=== PATIENT | male | born 1990 | race Caucasian/White ===

== ENCOUNTER 2024-08-24 22:56 | Emergency (ER) | payer BC, SELFPAY ==
[2024-08-24 23:04] VITALS: BP 132/68; PULSE 83; RESP 16; TEMP 36.7; O2SAT 98; BMI 29.5
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
[2024-08-24] MEDS: TETANUS/DIPHTH/PERTUSSIS 0.5 ML SYRINGE IM (23:09)
[2024-08-24] MEDS: LIDOCAINE 1%-EPI 1:100,000 5 ML INFILTRATI (23:10)
--- OUTSIDE RECORDS SUMMARY | 2024-08-24 23:14 | XMS_ITS | Clinical Summary ---
Author Organization [employer] [facility] Address [address] [place] [id number] Care Team Providers Care Head Of Insight Name Role Phone Pcp, No Primary Care Provider Unavailabl e Allergies Active Allergy Reactions Criticality Noted Date Comments Cats (Fur, Dander, Saliva) Respiratory Distress 04/02/2005 sneezing and sinus Medications * This document contains information received from the source organization and may not represent a complete record from that organization. omeprazole 20 mg tabletIndication s:GERD without esophagitis Take 1 Tablet (20 mg) by mouth once daily before a meal. 30 Tablet 1 07/30/2021 Active Active Problems Problem Noted Date Diagnosed Date Cellulitis and abscess 01/30/2015 Current smoker 01/30/2015 Bilateral chronic knee pain 09/10/2014 Cannabis abuse, continuous 09/09/2014 Pain medication agreement broken 07/07/2013 Overview (07/07/2013): 07/07/2013 Failed Toxasure, no further medications Cocaine and other medications present on recent test. Issue of repeat prescription 04/14/2013 Overview (07/07/2013): No further narcotics. PT has broken pain contract. Diagnosis for medication: chronic left knee pain Drug: Oxycodone 15 mg BID. Monitoring Intensity: moderate Frequency of office visits for pain medications: Q 1 month(s) MD monitoring interval / urine interval: annually Last pain contract date: 04/14/2013 Other Modalities that have been tried: PT, Percocet. Prior surgeries X3. Allergy nausea and vomiting from tylenol. BACK PAIN 08/01/2010 Resolved Problems Problem Noted Date Diagnosed Date Resolved Date Opioid abuse, daily use 09/09/201404/09 Opioid withdrawal 09/09/2014 04/28/2018 Opioid type dependence, continuous 09/09/2014 07/30/2021 Effusion of knee joint, left 04/30/2012 04/28/2018 CONTUSION, RIGHT RIB 12/22/2010 012 TOBACCO ABUSE 10/09/2010 03/02/2012 KNEE PAIN, LEFT, CHRONIC 02/25/2009 Unspecified part of closed f racture of clavicle 04/02/2005 03/02/2012 Overview (04/02/2005): Fall 2003 - left clavicular callus Immunizations Immunization Administration Dates Next Due Hepatitis B (Adult) 07/29/2017 Hepatitis B (Peds) 10/06/2002 Influenza, IIV4 (=>6mos) MDV 11/17/2018 MMR 10/06/2002 Td (Age >=7 Years) 05/09/2005,10/06/2002 Tdap 07/29/2017 Tuberculin (PPD) 10/04/2018,07/29/2017, 8,08/30/2013 Family History Medical History Relation Name Comments Good Health Father Cancer Maternal Grandfather Lung ca ncer Good Health Mother Allergies Other Relation Name Status Comments Child 1 Alive Child 2 Alive Father Maternal Grandfather Mother Other Social History Tobacco Use Types Packs/Day Years Used Date Smoking Tobacco: Former Cigarettes 1 7 0 05/28/2014 - 05/30/2021 Smokeless Tobacco: Never Tobacco Cessation:Ready to Q uit: No; Counseling Given: Yes Alcohol Use Standard Drinks/Week Comments No 0 (1 standard drink = 0.6 oz pur e alcohol) PHQ-2 Answer Date Recorded PHQ-2 TOTAL SCORE 0 07/30/2021 Social Connections Answer Date Recorded Frequency of Communication with Friends and Fami ly Not on file 07/31/2022 Financial Resource Strain Answer Date R ecorded Difficulty of Paying Living Expenses 3 07/30/2021 Difficulty of Paying Living Expenses Not on file 07/30/2021 Food Insecurity Answer Date Recorded Worried About Running Out of Food in the Last Ye ar 1 07/30/2021 Transportation Needs Answer Date Record ed Lack of Transportation (Medical) 1 07/30/2021 Housing Stability Answer Date Recorded Unable to Pay for Housing in the Last Year 1 07/30/2021 Interpersonal Safety Answer Date Record ed Are you being hit, kicked, p ushed or yelled at (see row info)? No 09/27/2023 Interpersonal Safety Abuse 12 - 18 Not on file 09/27/2023 Interpersonal Safety Ambulatory Vulnerability No t on file 09/27/2023 Sex and Gender Information Value Date Recorded Sex Assigned at Not on file Legal Sex Male 5:30 AM [employer] Gender Identity Not on file Sexual Orientation Not on file Obstetrics History Last Filed Vital Signs Vital Sign Reading Time Taken Comments Blood Pressure 135/84 09/27/2023 4:02 PM CDT Pulse 70 09/27/2023 4:02 PM CDT Temperature 36.5 C (97.7 F) 09/27/2023 4:02 PM CDT Respiratory Rate 18 09/27/2023 4:02 PM CDT Oxygen Saturation 97% 09/27/2023 4:02 PM CDT Inhaled Oxygen Concentration - - Weight 85.3 kg (188 lb) 09/27/2023 12:50 PM CDT Height 185.4 cm (6' 1) 09/27/2023 12:50 PM CDT Body Mass Index 24.8 09/27/2023 12:50 PM CDT Plan of Treatment Health Maintenance Due Date Last Done Comments Hepatitis B series for 19+ (3 of 3 - 3-dose series) 09/23/2017 07/29/2017, 10/06/2002 BMI (ht and wt on same day) for age 18+ 07/30/2022 07/30/2021, 05/13/2018, 04/28/2018, Additional history exists Depression screening for age 12+ 07/30/2022 07/30/2021, 06/24/2018, 05/02/2018, Additional history exists COVID-19 vaccine series ( season) 2023 Influenza Vaccine (#1) 2024 11/17/2018 Tetanus booster 07/30/2027 07/29/2017, 04/02/2005, 10/06/2002 HIV for age 15-65 Completed 11/10/2011 Hepatitis C screening for age 18-79 Completed 11/10/2011 Pneumococcal series for age 6-49 Aged Out No longer eligible based on patient's age to complete this topic Procedures Procedure Name Priority Date/Time Associated Diagnosis Comments ANTI HIV 1/2 STAT 11/10/2011 10:00 PM CDT ANTI HCV STAT 11/10/2011 10:00 PM CDT from Last 3 Months or Most Recently Relevant to Health Maintenance Results * ANTI HCV (11/10/2011 10:00 PM CDT) ANTI HCV Non-reacti ve [facility] Blood specimen (specimen) BLOOD SPECIMEN / Unknown 11/10/2011 10:00 PM CDT 11/10/2011 9:58 PM CDT us Rinku Ram MD SEND OUTS Final Result [facility] [place] [id number] [place] [id number] * ANTI HIV 1/2 (11/10/2011 10:00 PM CDT) ANTI HIV 1/2 Non-reacti [facility] Blood specimen (specimen) BLOOD SPECIMEN / Unknown 11/10/2011 10:00 PM CDT 11/10/2011 9:58 PM CDT us Rinku Ram MD SEND OUTS Final Result [facility] [place]IP [id number] [place] [phone] from Last 3 Months or Most Recently Relevant to Health Maintenance Additional Health Concerns Infection Onset Date Last Indicated MRSA Comment:Left Forearm Abscess 01/2901/30/2015 01/30/2015 Insurance [facility] Advance Directives * Full Code (Latest Code Status on File) Date Activated Date Inactivated Comments 01/30/2015 8:28 AM 01/31/2015 3:20 PM Question Answer Comments Code Status Discussion: Discussed * Full Code Date Activated Date Inactivated Comments 01/30/2015 5:10 AM 01/30/2015 8:28 AM Question Answer Comments Code Status Discussion: Discussed * Full Code Date Activated Date Inactivated Comments 09/09/2014 3:02 AM 09/11/2014 1:59 PM * Full Code Date Activated Date Inactivated Comments 03/07/2012 10:28 AM 03/07/2012 12:07 PM Care Teams Head Of Insight Relationship Specialty Start Date End Date Pcp, Jillian . PCP - General 09/23/22
--- OUTSIDE RECORDS SUMMARY | 2024-08-24 23:14 | XMS_ITS | Clinical Summary ---
Author Organization [place] Address [facility] [place] [address] Care Team Providers Care Cad Specialist Name Role Phone No Ref-Primary, Physician Primary Care Provider Allergies Active Allergy Reactions Criticality Noted Date Comments Cats Shortness Of Breath High 04/02/2005 sneezing and sinus Medications ibuprofen (ADVIL,MOTRIN) 200 MG tablet Take 3 tablets (600 mg) by mouth every 8 hours as needed for mild pain 20 tablet 0 4 Active Additional Information Patient not taking.Reported on 02/25/2023 HYDROcodone-jenna taminophen (NORCO) 5-325 MG per tablet Take 1-2 tablets by mouth every 4 hours as needed for moderate to severe pain 15 tablet 0 5 Active Additional Information Patient not taking.Reported on 02/25/2023 methylPREDNISol one (MEDROL DOSEPAK) 4 MG tablet therapy pack Follow Package Directions 21 tablet 2 Active Additional Information Patient not taking.Reported on 02/25/2023 cyclobenzaprine (FLEXERIL) 10 MG tablet Take 1 tablet (10 mg) by mouth 3 times daily as needed for muscle spasms or other (pain) 20 tablet 2 Active Additional Information Patient not taking.Reported on 02/25/2023 Social History Tobacco Use Types Packs/Day Years Used Date Smoking Tobacco: Every Day Cigarettes Tobacco Cessation:Ready to Q uit: Not Asked; Counseling Given: Not Answered Alcohol Use Standard Drinks/Week Comments No 0 (1 standard drink = 0.6 oz pur e alcohol) Adolescent Education Answer Date Record ed Getting School Help Needed Not on file 11/22 Sex and Gender Information Value Date Recorded Sex Assigned at Not on file Legal Sex Male 3:28 AM [employer] Gender Identity Not on file Sexual Orientation Not on file Last Filed Vital Signs Vital Sign Reading Time Taken Comments Blood Pressure 113/69 02/25/2023 3:03 PM [employer] Pulse 72 02/25/2023 3:03 PM [employer] Temperature 36.6 C (97.9 F) 02/25/2023 3:03 PM [employer]YOR [employer]CH[employer] Respiratory Rate 18 02/25/2023 3:03 PM [employer]CH[employer] Oxygen Saturation 97% 02/25/2023 3:03 PM [employer]CH[employer] Inhaled Oxygen Concentration - - Weight 97.5 kg (215 lb) 02/25/2023 3:03 PM [employer] Height 185.4 cm (6' 1) 12/14/2021 5:58 PM [employer] Body Mass Index 28.37 12/14/2021 5:58 PM [employer]VEYOR MECH[employer]IC Plan of Treatment Health Maintenance Due Date Last Done Comments ADVANCE CARE PLANNING 1989 ANNUAL REVIEW OF HM ORDERS 1989 YEARLY PREVENTIVE VISIT 1992 PNEUMOCOCCAL VACCINE: PEDIATRICS (0 to 5 YEARS) AND AT-RISK PATIENTS (6 to 49 YEARS) (1 of 2 - PCV) 2008 HEPATITIS B VACCINE (3 of 3 - 3-dose series) 09/23/2017 07/29/2017, 10/06/2002 COVID-19 VACCINE (1 - 2023-2 5 season) 2023 PHQ-2 (once per calendar year) 2024 DIABETES SCREENING 07/28/2024 07/28/2021 INFLUENZA VACCINE (#1) 2024 , 11/17/2018 DTAP/TDAP/TD VACCINE (4 - Td or Tdap) 07/30/2027 07/29/2017, 05/09/2005, 10/06/2002 ZOSTER VACCINE (1 of 2) 08/25/2039 HEPATITIS C SCREENING Completed 11/12/2011 HIV SCREENING Completed 11/12/2011 HPV VACCINE Aged Out No longer eligi ble based on patient's age to complete this topic MENINGITIS VACCINE Aged Out No longer eligible based on patient's age to complete this topic Procedures Procedure Name Priority Date/Time Associated Diagnosis Comments COMPREHENSIVE METABOLIC PANEL STAT 07/28/2021 12:36 AM CDT ANTI HIV 1/2 - HISTORICAL Routine 11/12/2011 1:27 PM CDT HEPATITIS C ANTIBODY Routine 11/12/2011 1:27 PM CDT from Last 3 Months or Most Recently Relevant to Health Maintenance Results * (ABNORMAL) Comprehensive metabolic panel (07/28/2021 12:36 AM CDT) Sodium 143 133 - 144 mmol/L 07/28/2021 1:32 AM CDT [facility] Potassium 4.1 3.4 - 5.3 mmol/L 07/28/2021 1:32 AM CDT [facility] Chloride 110(H) 94 - 109 mmol/L 07/28/2021 1:32 AM CDT [facility] Carbon Dioxide (CO2) 26 20 - 32 mmol/L 07/28/2021 1:32 AM CDT [facility] Anion Gap 7 3 - 14 mmol/L 07/28/2021 1:32 AM CDT [facility] Urea Nitrogen 23 7 - 30 mg/dL 07/28/2021 1:32 AM CDT [facility] Creatinine 0.78 0.66 - 1.25 mg/dL 07/28/2021 1:32 AM CDT [facility] Calcium 8.8 8.5 - 10.1 mg/dL 07/28/2021 1:32 AM CDT [facility] Glucose 95 70 - 99 mg/dL 07/28/2021 1:32 AM CDT [facility] Alkaline Phosphatase 77 40 - 150 U/L 07/28/2021 1:32 AM CDT [facility] AST 16 0 - 45 U/L 07/28/2021 1:32 AM CDT [facility] ALT 26 0 - 70 U/L 07/28/2021 1:32 AM CDT [facility] Protein Total 7.0 6.8 - 8.8 g/dL 07/28/2021 1:32 AM CDT [facility] Albumin 3.9 3.4 - 5.0 g/dL 07/28/2021 1:32 AM CDT [facility] Bilirubin Total 0.5 0.2 - 1.3 mg/dL 07/28/2021 1:32 AM CDT [facility] GFR Estimate >90 >60 mL/min/1.7 3m2 07/28/2021 1:32 AM CDT [facility] Comment:Effective January 092020 eGFRcr in adults is calculated using the 2020 CKD-EPI creatinine equation which includes age and gender (Puma et al., [place], DOI: 10.1056/JEWSlk0783163) Blood BLOOD SPECIMEN / Unknown Venipuncture / Unknown 07/28/2021 12:36 AM CDT 07/28/2021 12:40 AM CDT Alan Brennan MD LAB - BLOOD ORDERABLES Violeta l Result [facility] [place] [facility] [address] [place] [address], [address] [address], [facility] [phone] * Anti HIV 1/2 - Historical Result (11/12/2011 1:27 PM CDT) Anti HIV 1/2 - Historical Non-react [facility] Blood specimen (specimen) BLOOD SPECIMEN / Unknown 11/10/2011 10:00 PM CDT Rinku Ram MD LAB - BLOOD ORDERABLES Final Res ult Performing Organization Address City/[facility]/ZIP Co de Phone Number [facility] [address] [address], [facility] [phone] * Hepatitis C antibody (11/12/2011 1:27 PM CDT) Anti HCV - Historical Non-react [facility] Blood specimen (specimen) BLOOD SPECIMEN / Unknown 11/10/2011 10:00 PM CDT Rinku Ram MD LAB - BLOOD ORDERABLES Final Res ult [facility] [address] [id number] [phone] from Last 3 Months or Most Recently Relevant to Health Maintenance Additional Health Concerns Infection Onset Date Last Indicated MRSA 05/12/2012 05/12/2012 MRSA-Contact Isolation Comment:Arm 01/30/2015 01/30/2015 Insurance BCBS OUT OF STATE [facility] BCBS OUT OF STATE Care Teams Cad Specialist Relationship Specialty Start Date End Date No Ref-Primary, Physician PCP - General 07/28/21
== END 2024-08-24 23:16 | disposition home or self-care (01) ==
LOC: ED 23:12
PROVIDERS: Emergency Provider Student in an Organized Health Care Education/Training Program
DX: S51.841A Puncture wound with foreign body of right forearm, initial encounter (principal); Z23 Encounter for immunization
CPT/HCPCS: 10120; 90471; 90715; 99282; 99283